=== PATIENT | male | born 1965 | race Caucasian/White ===

== ENCOUNTER 2017-08-21 17:01 | Emergency (ER) | payer OTHER ==
[~2017-08-21] VITALS: Ht 175.2 cm; Wt 108.9 kg
--- NOTE | ~2017-08-21 | EKG ---
[place], [place] ELECTROCARDIOGRAM REPORT NAME: DADA KOO UNIT #: [id number] ROOM: DOCTOR: EPIPHANY DRAFT REPORT BIRTHDATE: [birth year] [facility] Test Date: 2017-08-21 Test Time: 17:03:10 Pat Name: DADA KOO Department: Room: Gender: Professor Of Biological Sciences: : 1965 Requested By: NICOL BONILLA Order Number: [id number] Reading MD: Davidson Pride MD Measurements Intervals Weikert Rate: 76 P: 35 AL: 140 QRS: -2 QRSD: 110 T: -34 QT: 376 QTc: 423 Interpretive Statements Sinus rhythm Multiform ventricular premature complexes Anterolateral infarct, acute (LAD) Baseline wander in lead(s) I,II,aVR,aV Electronically Signed On 08-22-2017 16:01:57 PDT by Davidson Pride MD CM:EKGRPT:ELECTROCARDIOGRAM REPORT [id number] NICOL SEALS DRAFT REPORT NICOL BONILLA DO
[~2017-08-21 17:01] MED LIST: ALBUTEROL0.09 MG/A2 IH; CLINDAMYCIN HC300 MG PO; DOLOBID500 MG PO; FLEXERIL10 MG PO; GUIAFENESIN/PSE1 TE1 PO; MELOXICAM15 MG PO; MOTRIN800 MG PO; OMEPRAZOLE20 MG PO; VICODIN 5/500 505 MG PO; VITAMIN B IJ; VITAMIN D PO; VITAMIN D50000 I2; VITAMIN D50000 I3 PO
[2017-08-21 17:14] LABS: HEMATOCRIT 51.4 % (42.0-52.0); HEMOGLOBIN 17.2 g/dl (14.0-18.0); MEAN CELL VOLUME 85.4 fl (80.0-94.0); MEAN CORPUSCULAR HGB 28.6 pg (27.0-31.0); MEAN CORPUSCULAR HGB CONC 33.5 g/dl (33.0-37.0); PLATELET COUNT AUTOMATED 302 10*3/uL (130-400); RED BLOOD COUNT 6.02 10*6/uL (4.50-5.90); RED CELL DISTRI WIDTH 13.2 % (0-14.5); WHITE BLOOD COUNT 13.9 10*3/uL (4.8-10.8)
[2017-08-21 17:24] LABS: ACT PARTIAL THROMBO TIME 24.9 SECONDS (20.8-31.5); INTERNATIONAL NORM RATIO 0.9 (2.0-3.5)
[2017-08-21 17:29] LABS: ALBUMIN 3.9 gm/dl (3.1-4.5); ALKALINE PHOSPHATASE 155 U/L (45-117); BUN 5 mg/dl (7-24); CHLORIDE 104 mmol/L (98-107); LIPASE 102 U/L (73-393); POTASSIUM 3.7 mmol/L (3.5-5.1); SGOT/AST 33 IU/L (3-35); SGPT/ALT 59 U/L (12-78); SODIUM 136 mmol/L (136-145); TOTAL PROTEIN 7.8 gm/dL (6.4-8.2)
[2017-08-21 17:30] LABS: TROPONIN I 0.054 ng/ml (<0.045)
[2017-08-21 17:34] LABS: ATYPICAL LYMPHS 1 % (0-0); BASOPHILS 1 % (0-1); PLATELET SUFFICIENCY NORMAL (NORMAL); TOTAL CELLS COUNTED 100 #CELLS
== END 2017-08-21 17:30 | disposition short-term general hospital (02) ==
LOC: ED 17:01
PROVIDERS: Emergency Medicine
DX: I21.3 ST elevation (STEMI) myocardial infarction of unspecified site (principal); I25.2 Old myocardial infarction; Z88.0 Allergy status to penicillin; Z88.6 Allergy status to analgesic agent

== ENCOUNTER → 2019-03-04 | Outpatient (CLI) | payer OTHER ==
[~2019-03-04] MED LIST changes: +ASPIRIN ADULT L81 M2 PO; +ATORVASTATIN CA40 M1 PO; +BRILINTA90 M1 PO; +COZAAR25 M1 PO; +Lopressor25 MG PO; +PEPCID AC10 M2 PO; +TAB-A-VITE1 EACH PO
== END | disposition home or self-care (01) ==
LOC: CARD 10:28
DX: I35.8 Other nonrheumatic aortic valve disorders (principal); I25.10 Atherosclerotic heart disease of native coronary artery without angina pectoris; I16.0 Hypertensive urgency